=== PATIENT | female | born 1945 | race Caucasian/White ===

== ENCOUNTER 2016-10-17 20:20 | Emergency (ER) | payer OTHER, MEDICARE ==
[~2016-10-17 20:20] MED LIST: AMLODIPINE BESY10 MG PO; ATORVASTATIN CA20 MG PO; CALCIUM 500 +1 EACH PO; CIPROFLOXACIN250 MG PO; CLONIDINE HCL0.1 MG PO; CYANOCOBALAM1000 MCG PO; LO-DOSE ASPIRIN81 M1 PO; METOPROLOL SUC100 MG PO; ONE DAILY FOR1 EAC1 PO; PANTOPRAZOLE SO40 MG PO; TEMOVATE 0.05%30 GM TP; VENLAFAXINE HC150 M1 PO; VENLAFAXINE HCL75 M3 PO
[2016-10-17 20:36] LABS: BASOPHIL COUNT 0.1 K/uL (0-0.1); EOSINOPHIL (%) 7.4 % (0-5); EOSINOPHIL COUNT 0.6 K/uL (0-0.3); HEMATOCRIT 35.9 % (36.0-46.0); IMMATURE GRANULOCYTE (%) 0.5 % (0.0-0.7); IMMATURE GRANULOCYTE COUNT 0.4 K/uL; LYMPHOCYTE COUNT 2.5 K/uL (1.0-2.8); MCH 30.7 PG (29.0-34.0); MCHC 33.1 G/DL (30.0-36.0); MCV 92.5 FL (83-99); MEAN PLAT.VOLUME 10.5 uM^3 (9.5-12.4); MONOCYTE (%) 9.6 % (3-12); MONOCYTE COUNT 0.8 K/uL (0-0.8); NEUTROPHIL COUNT 4.2 K/uL (1.8-6.4); PLATELET COUNT 232 K/uL (156-360); RBC DIS.WIDTH-SD 42.4 % (39-53); RED BLOOD COUNT 3.88 M/uL (3.80-5.20); WHITE BLOOD COUNT 8.1 K/uL (4.1-10.2)
[2016-10-17 20:45] LABS: AMYLASE 59 IU/L (1-118); CHLORIDE 105 mEq/L (99-109); POTASSIUM 3.6 mEq/L (3.7-5.4); SODIUM 139 mEq/L (136-147)
[2016-10-17 20:46] LABS: GLUCOSE 114 mg/dL (70-99)
[2016-10-17 20:48] LABS: ANION GAP 14 MEQ/L (2-14)
[2016-10-17 20:50] LABS: GFR ESTIMATE (CALCULATED) 52 mL/min/; SERUM ETHYL ALCOHOL 159 mg/dL
[2016-10-17 20:51] LABS: UREA NITROGEN (BUN) 28 mg/dL (9-23)
[2016-10-17 20:53] LABS: LIPASE 22 U/L (1.0-51.0)
[2016-10-17 21:43] LABS: ADD MIUA? YES; BILIRUBIN NEGATIVE; BLOOD NEGATIVE; COLOR YELLOW ((YELLOW)); GLUCOSE (STRIP) NEGATIVE; KETONES NEGATIVE; LEUKOCYTES MODERATE; NITRITE NEGATIVE; PROTEIN (STRIP) NEGATIVE; UROBILINOGEN 0.2 MG/DL (0.2-1.0)
[2016-10-17 21:53] LABS: AMPHETAMINE NEGATIVE (500 ng/mL); BARBITURATES NEGATIVE (200 ng/mL); BENZODIAZEPINES PRESUMPTIVE POSITIVE (150 ng/mL); COCAINE NEGATIVE (150 ng/mL); INTERNAL CONTROLS VALID? YES; METHADONE NEGATIVE (200 ng/mL); METHAMPHETAMINE NEGATIVE (500 ng/mL); OPIATES (MORPHINE) NEGATIVE (100 ng/mL); OXYCODONE NEGATIVE (100 ng/mL); PHENCYCLIDINE NEGATIVE (25 ng/mL); PROPOXYPHENE NEGATIVE (300 ng/mL); THC CANNABINOIDS NEGATIVE (50 ng/mL); TRICYCLIC ANTIDEPRESSANTS NEGATIVE (300 ng/mL)
[2016-10-17 21:54] LABS: ADD MEDTOX COMMENT Y
[2016-10-17 22:03] LABS: BACTERIA NONE SEEN; CASTS NONE SEEN /LPF; CRYSTALS NONE SEEN; EPITHELIAL CELLS RARE; MUCUS NONE SEEN; PATHOLOGICAL CAST NONE SEEN; RED BLOOD CELLS 0-5 /HPF (0-5); SMALL ROUND CELL NONE SEEN; UCUL ADDED? NO; WHITE BLOOD CELLS 30-40 /HPF (0-5); YEAST-LIKE CELL NONE SEEN
[2016-10-17 22:25] LABS: BENZODIAZEPINES QUANT VALUE 0 NG/ML; BENZODIAZEPINES, URINE SCREEN Negative (200 ng/mL)
== END 2016-10-17 23:08 | disposition home or self-care (01) ==
LOC: TRA 20:20
PROVIDERS: Emergency Medicine
DX: F10.129 Alcohol abuse with intoxication, unspecified (principal); Y90.6 Blood alcohol level of 120-199 mg/100 ml; V47.0XXA Car driver injured in collision with fixed or stationary object in nontraffic accident, initial encounter; Y92.488 Other paved roadways as the place of occurrence of the external cause; I10 Essential (primary) hypertension; K21.9 Gastro-esophageal reflux disease without esophagitis; M79.7 Fibromyalgia
CPT/HCPCS: 70450; 71260; 72125; 72129; 72132; 74177; 80048; 81003; 82150; 83690; 84999; 85025; 86850; 86900; 86901; 99281; 99285; G0480